=== PATIENT | female | born 1980 | race Caucasian/White ===

== ENCOUNTER 2016-11-24 06:52 | Inpatient (IN) | payer MEDICAID ==
[~2016-11-24 06:52] MED LIST: Oxytocin/Lactated Ringers 10 UNIT/1,000 ML BAG IV SCH
[2016-11-24] MEDS ORDERED: Oxytocin/Lactated Ringers 10 UNIT/1,000 ML BAG IV ONE ×2 (09:11→09:24)
[2016-11-24] MEDS: Lactated Ringers 1,000 ML IV SCH ×2 (11:05→22:32)
[2016-11-24] MEDS ORDERED: Sodium Chloride 0.9% 10 ML Syringe FLUSH PRN (12:39)
[2016-11-24] MEDS ORDERED: Ondansetron 4 MG/2 ML SDV IVPUSH PRN (12:41)
--- NOTE | 2016-11-24 16:42 | PCM.PNLD ---
Labor Progress Note - VS & Meds Vital Signs: Last Vital Signs Temp 36.2 C 11/24/16 07:40 Pulse 81 11/24/16 07:40 Resp 15 11/24/16 07:40 BP 103/70 11/24/16 07:40 Pulse Ox 98 11/24/16 07:40 Active Medications: Current Medications Lactated Ringer's (Ringers, Lactated) 1,000 mls @ 40 mls/hr IV ASDIRECTED JULIOCESAR Last Admin: 11/24/16 11:05 Dose: 40 mls/hr Oxytocin/Lactated Ringer's (Pitocin In Lr 10 Units/1,000 Ml) 10 unit in 1,000 mls @ 12 mls/hr IV TITRATE JULIOCESAR; 2 MUNITS/MIN PRN Reason: Protocol Last Titration: 11/24/16 15:35 Dose: 10 munits/min, 60 mls/hr Nalbuphine HCl (Nubain) 10 mg IVPUSH Q2H PRN PRN Reason: Pain (moderate 4-6) Ondansetron HCl (Zofran) 4 mg IVPUSH Q4H PRN PRN Reason: Nausea/Vomiting Sodium Chloride (Saline Flush) 10 ml FLUSH ASDIRECTED PRN PRN Reason: Keep Vein Open Discontinued Medications Oxytocin/Lactated Ringer's (Pitocin In Lr 10 Units/1,000 Ml) Confirm Administered Dose 10 unit in 1,000 mls @ as directed IV .STK-MED ONE Stop: 11/24/16 09:12 Last Admin: 11/24/16 09:33 Dose: Not Given Oxytocin/Lactated Ringer's (Pitocin In Lr 10 Units/1,000 Ml) Confirm Administered Dose 10 unit in 1,000 mls @ as directed IV .STK-MED ONE Stop: 11/24/16 09:25 Last Admin: 11/24/16 09:33 Dose: Not Given - Uterine Contractions Uterine Monitoring Mode: External [place] Contraction Intensity: Moderate Uterine Resting Tone: Soft - Monitoring Monitor Mode: External Ultrasound Heart Rate (FHR) Baseline: 130 Heart Rate (FHR) Variability: Moderate (6-25 bmp) Accelerations: Present, 10x10 (=/<32 wks) Decelerations: None Strip Review: Category I - Vaginal Exam Dilation (cm): 0.5 Effacement (Percent): 80 Station: 0 Cervical Position: Midposition - Labor Progress (Free Text) Labor Progress: Thought now that scar tissue band from LEEP after last delivery is what is precluding ROM. With aid of speculum able to pass a andino bulb past the cervix. Pitocin at 10. Once andino bulb out will attempt AROM at that time. Patient and her express understanding of the plan.
[2016-11-24] MEDS: Nalbuphine 20 MG/1 ML Amp IVPUSH PRN ×2 (18:16→22:31)
--- NOTE | 2016-11-24 19:51 | PCM.PNLD ---
Labor Progress Note - VS & Meds Vital Signs: Last Vital Signs Temp 36.2 C 11/24/16 07:40 Pulse 81 11/24/16 07:40 Resp 15 11/24/16 07:40 BP 103/70 11/24/16 07:40 Pulse Ox 98 11/24/16 07:40 Active Medications: Current Medications Lactated Ringer's (Ringers, Lactated) 1,000 mls @ 40 mls/hr IV ASDIRECTED JULIOCESAR Last Admin: 11/24/16 11:05 Dose: 40 mls/hr Oxytocin/Lactated Ringer's (Pitocin In Lr 10 Units/1,000 Ml) 10 unit in 1,000 mls @ 12 mls/hr IV TITRATE JULIOCESAR; 2 MUNITS/MIN PRN Reason: Protocol Last Titration: 11/24/16 15:35 Dose: 10 munits/min, 60 mls/hr Nalbuphine HCl (Nubain) 10 mg IVPUSH Q2H PRN PRN Reason: Pain (moderate 4-6) Last Admin: 11/24/16 18:16 Dose: 10 mg Ondansetron HCl (Zofran) 4 mg IVPUSH Q4H PRN PRN Reason: Nausea/Vomiting Sodium Chloride (Saline Flush) 10 ml FLUSH ASDIRECTED PRN PRN Reason: Keep Vein Open Discontinued Medications Oxytocin/Lactated Ringer's (Pitocin In Lr 10 Units/1,000 Ml) Confirm Administered Dose 10 unit in 1,000 mls @ as directed IV .STK-MED ONE Stop: 11/24/16 09:12 Last Admin: 11/24/16 09:33 Dose: Not Given Oxytocin/Lactated Ringer's (Pitocin In Lr 10 Units/1,000 Ml) Confirm Administered Dose 10 unit in 1,000 mls @ as directed IV .STK-MED ONE Stop: 11/24/16 09:25 Last Admin: 11/24/16 09:33 Dose: Not Given - Uterine Contractions Uterine Monitoring Mode: External [place] Contraction Intensity: Moderate to Strong Uterine Resting Tone: Soft - Monitoring Monitor Mode: External Ultrasound Heart Rate (FHR) Baseline: 140 Heart Rate (FHR) Variability: Moderate (6-25 bmp) Accelerations: Present, 10x10 (=/<32 wks) Decelerations: None, Late, Intermittent (<50% x 20 min) Strip Review: Category II - Labor Progress (Free Text) Labor Progress: Patient now feeling much more uncomfortable. Has received 1 dose of nubain. Pitocin at 10, but just decreased due to 3 recurrent late decelerations. Will decrease further if needed. Pressure placed on andino bulb, but still in place. Will assess again in a few hours Shelley Polanco MD
[2016-11-25] MEDS: Lactated Ringers 1,000 ML IV SCH (00:30)
--- NOTE | 2016-11-25 00:45 | PCM.PNLD ---
Labor Progress Note - VS & Meds Vital Signs: Last Vital Signs Temp 36.2 C 11/24/16 07:40 Pulse 81 11/24/16 07:40 Resp 15 11/24/16 07:40 BP 103/70 11/24/16 07:40 Pulse Ox 98 11/24/16 07:40 Active Medications: Current Medications Lactated Ringer's (Ringers, Lactated) 1,000 mls @ 40 mls/hr IV ASDIRECTED JULIOCESAR Last Admin: 11/24/16 22:32 Dose: 40 mls/hr Oxytocin/Lactated Ringer's (Pitocin In Lr 10 Units/1,000 Ml) 10 unit in 1,000 mls @ 12 mls/hr IV TITRATE JULIOCESAR; 2 MUNITS/MIN PRN Reason: Protocol Last Titration: 11/24/16 15:35 Dose: 10 munits/min, 60 mls/hr Nalbuphine HCl (Nubain) 10 mg IVPUSH Q2H PRN PRN Reason: Pain (moderate 4-6) Last Admin: 11/24/16 22:31 Dose: 10 mg Ondansetron HCl (Zofran) 4 mg IVPUSH Q4H PRN PRN Reason: Nausea/Vomiting Sodium Chloride (Saline Flush) 10 ml FLUSH ASDIRECTED PRN PRN Reason: Keep Vein Open Discontinued Medications Oxytocin/Lactated Ringer's (Pitocin In Lr 10 Units/1,000 Ml) Confirm Administered Dose 10 unit in 1,000 mls @ as directed IV .STK-MED ONE Stop: 11/24/16 09:12 Last Admin: 11/24/16 09:33 Dose: Not Given Oxytocin/Lactated Ringer's (Pitocin In Lr 10 Units/1,000 Ml) Confirm Administered Dose 10 unit in 1,000 mls @ as directed IV .STK-MED ONE Stop: 11/24/16 09:25 Last Admin: 11/24/16 09:33 Dose: Not Given - Uterine Contractions Uterine Monitoring Mode: External [place] Contraction Intensity: Strong Uterine Resting Tone: Soft - Monitoring Monitor Mode: External Ultrasound Heart Rate (FHR) Baseline: 135 Heart Rate (FHR) Variability: Moderate (6-25 bmp) Accelerations: Present, 10x10 (=/<32 wks) Decelerations: None Strip Review: Category I - Vaginal Exam Dilation (cm): 1 Effacement (Percent): 100 Station: 0 Cervical Position: Midposition - Labor Progress (Free Text) Labor Progress: Patient feeling very uncomfortable. Checked with andino bulb still in place and thought to be maybe just very thin scar tissue/cervix covering. Deflated and able to AROM through 1 cm opening. Patient has been zayda on her own since 1999 without pitocin. Continue present management Shelley Polanco MD
--- NOTE | 2016-11-25 00:58 | PCM.SN ---
- Free Text/Narrative Note: SVE done now and able to stretch cervical opening and break down a band of scar tissue. Patient now 4 cm dilated. Continue expectant management Shelley Polanco MD
[2016-11-25] MEDS: Nalbuphine 20 MG/1 ML Amp IVPUSH PRN (01:16)
--- NOTE | 2016-11-25 04:38 | PCM.DEL ---
L & D Note - General Info Date of Service: 11/25/16 - Delivery Note Labor: induced by oxytocin Cervical Ripening Method: Balloon Device Delivery Outcome: Livebirth Infant Delivery Method: Spontaneous Vaginal Delivery Delivery Mode: Spontaneous Presentation: Right Occiput Anterior (DARIN) Nuchal cord: none Anesthesia Type: None Amniotic Fluid Description: Clear Episiotomy Type: None Laceration: none Placenta: intact, spontaneous Cord: 3 vessels Estimated blood loss: 300 Resuscitation needed: Yes : bulb syringe, stimulated, warmed, blanket used, warmer used Score 1 min: 8 Score 5 min: 9 Delivery Comments (Free Text/Narrative):: Patient found to be complete and began pushing. With maternal pushing effort head delivered from an DARIN presentation. No nuchal cord present. Shoulders and body quickly followed. Cord clamped and cut. Cord blood obtained. Placenta allowed time to separate and expelled. Inspection of the perineum showed no lacerations. - Patient Data Vitals - most recent: Last Vital Signs Temp 36.2 C 11/24/16 07:40 Pulse 81 11/24/16 07:40 Resp 15 11/24/16 07:40 BP 103/70 11/24/16 07:40 Pulse Ox 98 11/24/16 07:40 Weight - most recent: 63.276 kg I&O - last 24 hours: Intake & Output 11/24/16 11/24/16 11/25/16 14:59 22:59 06:59 Intake Total 240 Balance 240 Med Orders - Current: Current Medications Lactated Ringer's (Ringers, Lactated) 1,000 mls @ 40 mls/hr IV ASDIRECTED JULIOCESAR Last Admin: 11/24/16 22:32 Dose: 40 mls/hr Oxytocin/Lactated Ringer's (Pitocin In Lr 10 Units/1,000 Ml) 10 unit in 1,000 mls @ 12 mls/hr IV TITRATE JULIOCESAR; 2 MUNITS/MIN PRN Reason: Protocol Last Titration: 11/24/16 15:35 Dose: 10 munits/min, 60 mls/hr Nalbuphine HCl (Nubain) 10 mg IVPUSH Q2H PRN PRN Reason: Pain (moderate 4-6) Last Admin: 11/25/16 01:16 Dose: 10 mg Ondansetron HCl (Zofran) 4 mg IVPUSH Q4H PRN PRN Reason: Nausea/Vomiting Sodium Chloride (Saline Flush) 10 ml FLUSH ASDIRECTED PRN PRN Reason: Keep Vein Open Discontinued Medications Oxytocin/Lactated Ringer's (Pitocin In Lr 10 Units/1,000 Ml) Confirm Administered Dose 10 unit in 1,000 mls @ as directed IV .STK-MED ONE Stop: 11/24/16 09:12 Last Admin: 11/24/16 09:33 Dose: Not Given Oxytocin/Lactated Ringer's (Pitocin In Lr 10 Units/1,000 Ml) Confirm Administered Dose 10 unit in 1,000 mls @ as directed IV .STK-MED ONE Stop: 11/24/16 09:25 Last Admin: 11/24/16 09:33 Dose: Not Given - Problem List & Annotations (1) Vaginal delivery SNOMED Code(s): 803566296 Code(s): O80 - ENCOUNTER FOR FULL-TERM UNCOMPLICATED DELIVERY Status: Acute Current Visit: Yes (2) 39 weeks gestation of SNOMED Code(s): 54906870 Code(s): Z3A.39 - 39 WEEKS GESTATION OF Status: Acute Current Visit: No (3) Elective induction of labor planned SNOMED Code(s): 530662535 Code(s): TFQ2881 - Status: Acute Current Visit: No - Problem List Review Problem List Initiated/Reviewed/Updated: Yes - My Orders Last 24 Hours: My Active Orders 11/24/16 06:13 Patient Status [ADT] Routine Nalbuphine [Nubain] 10 mg IVPUSH Q2H PRN Oxytocin/Lactated Ringers [Pitocin in LR 10 Units/1,000 ML] 10 unit in 1,000 ml IV TITRATE 11/24/16 06:15 Lactated Ringers [Ringers, Lactated] 1,000 ml IV ASDIRECTED 11/24/16 12:32 Code Status [Resuscitation Status] Routine 11/24/16 12:39 Sodium Chloride 0.9% [Saline Flush] 10 ml FLUSH ASDIRECTED PRN Peripheral IV Insertion Adult [OM.PC] Routine 11/24/16 12:40 Peripheral IV Care [RC] . DIRECTED 11/24/16 12:41 Ondansetron [Zofran] 4 mg IVPUSH Q4H PRN 11/24/16 13:05 Communication Order [RC] ASDIRECTED Communication Order [RC] ASDIRECTED Notify Provider [RC] ASDIRECTED 11/24/16 13:08 Activity as Tolerated [RC] PFP Communication Order [RC] ASDIRECTED Notify Provider [RC] PRN Vital Signs [RC] PER UNIT ROUTINE Electronic Heart Tones Ext w TOCO [WOMSER] Routine Electronic Heart Tones Internal [WOMSER] Per Unit Routine Peripheral IV Insertion Adult [OM.PC] Routine 11/24/16 Breakfast Regular Diet [DIET] - Assessment Assessment:: 36 PPD#0 from at 39 1/7 wks - Plan Plan:: * Routine cares * Encourage breast feeding * Discharge home in 1 day
[2016-11-25] MEDS ORDERED: Acetaminophen 325 MG Tab PO PRN (06:16)
[2016-11-25] MEDS ORDERED: Benzocaine/Menthol 20%-0.5% Spray 56 GM Canister TOP PRN (06:16)
[2016-11-25] MEDS ORDERED: Ibuprofen 600 MG Tab PO PRN (06:16)
[2016-11-25] MEDS ORDERED: Lanolin 100% Cream 7 GM Tube TOP PRN (06:16)
[2016-11-25] MEDS ORDERED: Witch Hazel Medicated Pads 100/Jar TOP PRN (06:16)
[2016-11-26 05:41] VITALS: BP 109/71
--- NOTE | 2016-11-26 06:57 | PCM.PNPP ---
- General Info Date of Service: 11/26/16 Functional Status: Reports: pain controlled, tolerating diet, ambulating, urinating - Review of Systems General: Reports: No Symptoms Pulmonary: Reports: no symptoms Cardiovascular: Reports: No Symptoms Gastrointestinal: Reports: No symptoms Genitourinary: Reports: no symptoms Musculoskeletal: Reports: no symptoms - Patient Data Vital Signs - most recent: Last Vital Signs Temp 37.1 C 11/26/16 03:48 Pulse 65 11/26/16 03:48 Resp 12 11/26/16 03:48 BP 109/71 11/26/16 03:48 Pulse Ox 97 11/26/16 03:48 Weight - most recent: 63.276 kg I&O - last 24 hours: Intake & Output 11/25/16 11/25/16 11/26/16 14:59 22:59 06:59 Intake Total 240 Balance 240 Med Orders - Current: Current Medications Acetaminophen (Tylenol) 650 mg PO Q4H PRN PRN Reason: mild pain or fever Benzocaine/Menthol (Dermoplast Pain Relief [place]) 0 gm TOP ASDIRECTED PRN PRN Reason: Perineal Comfort Measure Emollient Ointment (Lansinoh Hpa) 0 gm TOP ASDIRECTED PRN PRN Reason: Sore Nipples Last Admin: 11/26/16 00:26 Dose: 1 tube Ibuprofen (Motrin) 600 mg PO Q6H PRN PRN Reason: Mild pain or fever Witch Estela (Tucks) 1 pad TOP ASDIRECTED PRN PRN Reason: Hemorrhoid pain Discontinued Medications Oxytocin/Lactated Ringer's (Pitocin In Lr 10 Units/1,000 Ml) Confirm Administered Dose 10 unit in 1,000 mls @ as directed IV .STK-MED ONE Stop: 11/24/16 09:12 Last Admin: 11/24/16 09:33 Dose: Not Given Oxytocin/Lactated Ringer's (Pitocin In Lr 10 Units/1,000 Ml) Confirm Administered Dose 10 unit in 1,000 mls @ as directed IV .STK-MED ONE Stop: 11/24/16 09:25 Last Admin: 11/24/16 09:33 Dose: Not Given Lactated Ringer's (Ringers, Lactated) 1,000 mls @ 40 mls/hr IV ASDIRECTED [facility] Last Admin: 11/25/16 00:30 Dose: 40 mls/hr Oxytocin/Lactated Ringer's (Pitocin In Lr 10 Units/1,000 Ml) 10 unit in 1,000 mls @ 12 mls/hr IV TITRATE JULIOCESAR; 2 MUNITS/MIN PRN Reason: Protocol Last Titration: 11/24/16 20:04 Dose: 0 munits/min, 0 mls/hr Nalbuphine HCl (Nubain) 10 mg IVPUSH Q2H PRN PRN Reason: Pain (moderate 4-6) Last Admin: 11/25/16 01:16 Dose: 10 mg Ondansetron HCl (Zofran) 4 mg IVPUSH Q4H PRN PRN Reason: Nausea/Vomiting Sodium Chloride (Saline Flush) 10 ml FLUSH ASDIRECTED PRN PRN Reason: Keep Vein Open - Infant Interaction Disposition, : [place] in Room with Family Interaction: Holding Infant Infant Feeding: Breastfed Infant; Nursed Well Support Person: Significant Other - Recovery Exam Fundal Tone: Firm Fundal Level: 3 Fingerbreadths Below Umbilicus Fundal Placement: Midline Lochia Amount: Scant Lochia Color: Rubra/Red Perineum Description: Intact, Minimal Bruising/Swelling Episiotomy/Laceration: None Bladder Status: Voiding - Exam General: alert, oriented, cooperative Abdomen: soft, no tenderness Extremities: no edema Skin: warm, dry, intact - Problem List & Annotations (1) Vaginal delivery SNOMED Code(s): 809939935 Code(s): O80 - ENCOUNTER FOR FULL-TERM UNCOMPLICATED DELIVERY Status: Acute Current Visit: Yes (2) 39 weeks gestation of SNOMED Code(s): 61565462 Code(s): Z3A.39 - 39 WEEKS GESTATION OF Status: Acute Current Visit: No (3) Elective induction of labor planned SNOMED Code(s): 251648166 Code(s): WKT7803 - Status: Acute Current Visit: No - Problem List Review Problem List Initiated/Reviewed/Updated: Yes - My Orders Last 24 Hours: My Active Orders 11/25/16 06:16 Activity as Tolerated [RC] Vital Signs [RC] 04,12,20 Acetaminophen [Tylenol] 650 mg PO Q4H PRN Benzocaine/Menthol [Dermoplast Pain Relief [place]] See Dose Instructions TOP ASDIRECTED PRN Ibuprofen [Motrin] 600 mg PO Q6H PRN Lanolin [Lansinoh HPA] See Dose Instructions TOP ASDIRECTED PRN Witch Estela [Tucks] 1 pad TOP ASDIRECTED PRN Assess Lochia [WOMSER] Per Unit Routine Assess Uterine Involution [WOMSER] Per Unit Routine Breast Pump [WOMSER] Per Unit Routine Heat Therapy [OM.PC] PRN Ice Therapy [OM.PC] Per Unit Routine Perineal Care [OM.PC] Per Unit Routine Peripheral IV Discontinue [OM.PC] Routine Sitz Bath [OM.PC] Per Unit Routine 11/25/16 Breakfast Regular Diet [DIET] 11/26/16 06:16 Heat Therapy [OM.PC] PRN 11/26/16 06:56 Ready for Discharge [RC] PER UNIT ROUTINE - Assessment Assessment:: 36 PPD#1 from at 39 1/7 wks - Plan Plan:: * Routine cares * Encourage breast feeding * Discharge home today
--- NOTE | 2016-11-26 07:00 | PCM.DCSUM1 ---
Discharge Summary - Discharge Data Discharge Date: 11/26/16 Discharge Disposition: Home, Self-Care 01 Condition: Good - Discharge Diagnosis/Problem(s) (1) Vaginal delivery SNOMED Code(s): 416042153 ICD Code: O80 - ENCOUNTER FOR FULL-TERM UNCOMPLICATED DELIVERY Status: Acute Current Visit: Yes (2) 39 weeks gestation of SNOMED Code(s): 32563438 ICD Code: Z3A.39 - 39 WEEKS GESTATION OF Status: Acute Current Visit: No (3) Elective induction of labor planned SNOMED Code(s): 901915482 ICD Code: LOQ3353 - Status: Acute Current Visit: No - Patient Summary/Data Complications: None Consults: None Recommended Follow-up Testing/Procedures: Follow up in 5-6 weeks for check Hospital Course: Patient is a 36 y/o admitted at 39 0/7 wks for IOL. This was done with pitocin, andino bulb, and AROM. This was a longer induction due to scar tissue from previous LEEP. She eventually underwent an uncomplicated . See delivery note. she did well and was discharged home on PPD#1. - Patient Instructions Diet: Regular Diet as Tolerated Activity: As Tolerated Activity, Other: Pelvic Rest for 6 weeks Driving: May Drive Today Showering/Bathing: May Shower Showering/Bathing, Other: May Bathe Notify Provider of: Fever, Increased Pain, Swelling and Redness, Drainage, Nausea and/or Vomiting - Discharge Plan Home Medications: Home Meds Vits #93/Iron Fum/FA [ Formula Tablet] 1 each PO DAILY [History] Ranitidine [Zantac] 150 mg PO BID 12/29/13 [History] Ibuprofen [IJD: Ibuprofen] 600 mg PO Q6H PRN #0 tablet 11/25/16 [Rx] Referrals: Shelley Polanco MD [Primary Care Provider] - (5-6 weeks for check) - Patient Data Vitals - Most Recent: Last Vital Signs Temp 37.1 C 11/26/16 03:48 Pulse 65 11/26/16 03:48 Resp 12 11/26/16 03:48 BP 109/71 11/26/16 03:48 Pulse Ox 97 11/26/16 03:48 Weight - Most Recent: 63.276 kg I&O - Last 24 hours: Intake & Output 11/25/16 11/25/16 11/26/16 14:59 22:59 06:59 Intake Total 240 Balance 240 Med Orders - Current: Current Medications Acetaminophen (Tylenol) 650 mg PO Q4H PRN PRN Reason: mild pain or fever Benzocaine/Menthol (Dermoplast Pain Relief [place]) 0 gm TOP ASDIRECTED PRN PRN Reason: Perineal Comfort Measure Emollient Ointment (Lansinoh Hpa) 0 gm TOP ASDIRECTED PRN PRN Reason: Sore Nipples Last Admin: 11/26/16 00:26 Dose: 1 tube Ibuprofen (Motrin) 600 mg PO Q6H PRN PRN Reason: Mild pain or fever Witch [place] (Tucks) 1 pad TOP ASDIRECTED PRN PRN Reason: Hemorrhoid pain Discontinued Medications Oxytocin/Lactated Ringer's (Pitocin In Lr 10 Units/1,000 Ml) Confirm Administered Dose 10 unit in 1,000 mls @ as directed IV .STK-MED ONE Stop: 11/24/16 09:12 Last Admin: 11/24/16 09:33 Dose: Not Given Oxytocin/Lactated Ringer's (Pitocin In Lr 10 Units/1,000 Ml) Confirm Administered Dose 10 unit in 1,000 mls @ as directed IV .STK-MED ONE Stop: 11/24/16 09:25 Last Admin: 11/24/16 09:33 Dose: Not Given Lactated Ringer's (Ringers, Lactated) 1,000 mls @ 40 mls/hr IV ASDIRECTED JULIOCESAR Last Admin: 11/25/16 00:30 Dose: 40 mls/hr Oxytocin/Lactated Ringer's (Pitocin In Lr 10 Units/1,000 Ml) 10 unit in 1,000 mls @ 12 mls/hr IV TITRATE JULIOCESAR; 2 MUNITS/MIN PRN Reason: Protocol Last Titration: 11/24/16 20:04 Dose: 0 munits/min, 0 mls/hr Nalbuphine HCl (Nubain) 10 mg IVPUSH Q2H PRN PRN Reason: Pain (moderate 4-6) Last Admin: 11/25/16 01:16 Dose: 10 mg Ondansetron HCl (Zofran) 4 mg IVPUSH Q4H PRN PRN Reason: Nausea/Vomiting Sodium Chloride (Saline Flush) 10 ml FLUSH ASDIRECTED PRN PRN Reason: Keep Vein Open *Q Meaningful Use (DIS) - VTE *Q VTE Criteria *Q: - Stroke *Q Stroke Criteria *Q: - AMI *Q AMI Criteria *Q:
== END 2016-11-26 10:19 | disposition home or self-care (01) | DRG 775 ==
LOC: JD.OB 06:52 → JD.US 06:52 → JD.OB 06:53 → JD.US 06:53 → OBSVTOIN 11-25 04:20 → JD.OB 11-25 04:20
PROVIDERS: ADMIT Obstetrics & Gynecology; ATTEND Obstetrics & Gynecology
PROC: 10E0XZZ Delivery of Products of Conception, External Approach (ICD-10-PCS; principal; 2016-11-25)
PROC: 10907ZC Drainage of Amniotic Fluid, Therapeutic from Products of Conception, Via Natural or Artificial Opening (ICD-10-PCS; 2016-11-25)
DX: O80 Encounter for full-term uncomplicated delivery (principal); Z3A.39 39 weeks gestation of pregnancy; Z37.0 Single live birth
CPT/HCPCS: A9270-GY; J2300; J2590; J7120

== ENCOUNTER 2019-06-17 09:02 | Emergency (ER) | payer MEDICAID ==
[2019-06-17 09:25] VITALS: BP 110/82; PULSE 96
--- NOTE | 2019-06-17 09:36 | EDM.PDOC ---
ED HPI GENERAL MEDICAL PROBLEM - General Chief Complaint: Chest Pain Stated Complaint: CHEST PAIN OFF AND ON Time Seen by Provider: 06/17/19 09:36 - History of Present Illness INITIAL COMMENTS - FREE TEXT/NARRATIVE: 38-year-old female presents emergency room with intermittent chest pain. She has pain usually when she tries to go to bed. He goes into her chest it is different from when she had reflux when she was . He gets it 3 or 4 times a month she had it last night and it was worse than normal. It is described as a midepigastric discomfort not necessarily burning. She has not had a cough. No fevers chills. No nausea or vomiting. Deep breathing tends to make it better. And she might have an anxiety component when this happens. Right Chest Pain Score (Numeric/FACES): 3 - Related Data Allergies Allergy/AdvReac Type Severity Reaction Status Date / Time No Known Allergies Allergy Verified 06/17/19 09:19 Home Meds: Home Meds Omeprazole 20 mg PO Q24H #30 capsule. 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 - Past Surgical History HEENT Surgical History: Reports: Tonsillectomy Other HEENT Surgeries/Procedures: 1993 Female Surgical History: Reports: Cervical Conization, LEEP, Tubal Ligation Other Female Surgeries/Procedures: 2013 Social & Family History - Family History Family Medical History: Noncontributory - Tobacco Use Smoking Status *Q: Never Smoker - Caffeine Use Caffeine Use: Reports: Soda Caffeine Use Comment: once a day - Recreational Drug Use Recreational Drug Use: No ED ROS GENERAL - Review of Systems Review Of Systems: See Below Constitutional: Reports: No Symptoms HEENT: Reports: No Symptoms Respiratory: Denies: Pleuritic Chest Pain, Cough, Sputum Cardiovascular: Reports: Chest Pain (Term it since). Denies: Edema, Palpitations Endocrine: Reports: No Symptoms GI/Abdominal: Denies: Constipation, Diarrhea, Nausea, Vomiting : Reports: No Symptoms Musculoskeletal: Reports: No Symptoms Skin: Reports: No Symptoms Neurological: Reports: No Symptoms Psychiatric: Reports: Other (Hospital anxiety) Hematologic/Lymphatic: Reports: No Symptoms Immunologic: Reports: No Symptoms ED EXAM, GENERAL - Physical Exam Exam: See Below Exam Limited By: Uncooperative General Appearance: No Apparent Distress Head: Atraumatic, Normocephalic Neck: Normal Inspection, Supple, Non-Tender, Full Range of Motion. No: Lymphadenopathy (L), Lymphadenopathy (R) Respiratory/Chest: No Respiratory Distress, Lungs Clear, Normal Breath Sounds, Other Cardiovascular: Regular Rate, Rhythm, No Edema (Outpatient of the chest does not ), No Murmur GI/Abdominal: Normal Bowel Sounds, Soft, Non-Tender Back Exam: Normal Inspection. No: CVA Tenderness (L), CVA Tenderness (R) Extremities: Normal Inspection, Non-Tender, No Pedal Edema EKG INTERPRETATION EKG Date: 06/17/19 [place]: Normal P-Wave: Present QRS: Normal ST-T: Normal QT: Normal Comparison: NA - No Prior EKG EKG Interpretation Comments: Normal EKG Course - Vital Signs Last Recorded V/S: Last Vital Signs Temp 36.9 C 06/17/19 09:20 Pulse 96 06/17/19 09:20 Resp 16 06/17/19 09:20 BP 110/82 06/17/19 09:20 Pulse Ox 99 06/17/19 09:20 - Orders/Labs/Meds Orders: Active Orders 24 hr Category Date Time Status EKG Documentation Completion [RC] ASDIRECTED Care 06/17/19 10:01 Active Chest 2V [CR] Stat Exams 06/17/19 10:04 Taken EKG 12 Lead [EK] Stat Ther 06/17/19 10:01 Ordered Labs: Laboratory Tests 06/17/19 06/17/19 06/17/19 Range/Units 10:25 10:25 10:25 WBC 6.81 (3.98-10.04) K/mm3 RBC 4.44 (3.98-5.22) M/mm3 Hgb 13.3 (11.2-15.7) gm/dl Hct 39.4 (34.1-44.9) % MCV 88.7 (79.4-94.8) fl MCH 30.0 (25.6-32.2) pg MCHC 33.8 (32.2-35.5) g/dl RDW Std Deviation 40.8 (36.4-46.3) fL Plt Count 215 (182-369) K/mm3 MPV 10.0 (9.4-12.3) fl Neut % (Auto) 71.5 H (34.0-71.1) % Lymph % (Auto) 18.6 L (19.3-51.7) % [place] % (Auto) 7.0 (4.7-12.5) % Eos % (Auto) 2.6 (0.7-5.8) Baso % (Auto) 0.3 (0.1-1.2) % Neut # (Auto) 4.86 (1.56-6.13) K/mm3 Lymph # (Auto) 1.27 (1.18-3.74) K/mm3 [place] # (Auto) 0.48 H (0.24-0.36) K/mm3 Eos # (Auto) 0.18 (0.04-0.36) K/mm3 Baso # (Auto) 0.02 (0.01-0.08) K/mm3 Sodium 142 (136-145) mEq/L Potassium 4.0 (3.5-5.1) mEq/L Chloride 107 (98-107) mEq/L Carbon Dioxide 25 (21-32) mEq/L Anion Gap 14.0 (5-15) BUN 14 (7-18) mg/dL Creatinine 0.7 (0.55-1.02) mg/dL Est Cr Clr Drug Dosing 94.10 mL/min Estimated GFR (MDRD) > 60 (>60) mL/min BUN/Creatinine Ratio 20.0 H (14-18) Glucose 95 (74-106) mg/dL Calcium 8.6 (8.5-10.1) mg/dL Total Bilirubin 0.8 (0.2-1.0) mg/dL AST 10 L (15-37) U/L ALT 17 (14-59) U/L Alkaline Phosphatase 49 (46-116) U/L Troponin I 0.017 (0.00-0.056) ng/mL Total Protein 7.5 (6.4-8.2) g/dl Albumin 4.0 (3.4-5.0) g/dl Globulin 3.5 gm/dL Albumin/Globulin Ratio 1.1 (1-2) Lipase 95 (73-393) U/L Meds: Medications Discontinued Medications Generic Name Dose Route Start Last Admin Trade Name Cookie PRN Reason Stop Dose Admin Al Hydroxide/Mg Hydroxide 30 0 ml 06/17/19 10:05 06/17/19 10:28 ml/ Lidocaine HCl 15 ml PO 06/17/19 10:06 45 ml ONETIME ONE Administration - Re-Assessments/Exams Free Text/Narrative Re-Assessment/Exam: 06/17/19 12:43 X-rays normal laboratory evaluation is nonsuggestive. Patient to get some relief with GI cocktail this was not complete did help anticipate discharge with Carafate for 6 days and will start PPI therapy and have her follow-up in the clinic at the end of this week. Departure - Departure Time of Disposition: 12:43 Disposition: Home, Self-Care 01 Clinical Impression: Dyspepsia - Discharge Information Prescriptions: Omeprazole 20 mg PO Q24H #30 capsule. Sucralfate [Carafate] 1 gm PO QIDACANDBED #24 tablet Referrals: Eri Mccormick PA-C [Primary Care Provider] - Forms: ED Department Discharge Additional Instructions: Return to emergency room if any questions or problems. Follow-up with your regular provider at the end of this week for recheck. Take medications as directed you will take the Carafate 4 times a day just before meals and at bedtime we discussed. You have also been started on omeprazole you'll take one 1 hour before your morning meal daily. Sepsis Event Note - Evaluation Sepsis Screening Result: No Definite Risk - Focused Exam Vital Signs: Vital Signs Temp Pulse Resp BP Pulse Ox 06/17/19 09:20 36.9 C 96 16 110/82 99 Date Exam was Performed: 06/17/19 Time Exam was Performed: 12:43 - My Orders Last 24 Hours: My Active Orders 06/17/19 10:01 EKG Documentation Completion [RC] ASDIRECTED EKG 12 Lead [EK] Stat 06/17/19 10:04 Chest 2V [CR] Stat - Assessment/Plan Last 24 Hours: My Active Orders 06/17/19 10:01 EKG Documentation Completion [RC] ASDIRECTED EKG 12 Lead [EK] Stat 06/17/19 10:04 Chest 2V [CR] Stat
[2019-06-17] MEDS ORDERED: Alum Hydrox/Mag Hydrox/Simeth 30 ML, Lidocaine 2% 15 ML PO ONE ×2 (10:05)
--- NOTE | 2019-06-18 09:21 | CR ---
Chest: Two views of the chest were obtained. Comparison: No prior chest x-ray. Heart size and mediastinum are normal. Lungs are clear. Bony structures show minimal degenerative change within the mid thoracic spine. Impression: 1. Nothing acute is seen.
== END 2019-06-17 13:10 | disposition home or self-care (01) ==
LOC: JD.ED 09:02
DX: R10.13 Epigastric pain (principal)
CPT/HCPCS: 36415; 71046; 80053; 83690; 84484; 85025; 93005; 99285; A9270; 93010; 99283

== ENCOUNTER 2019-09-30 19:00 | Emergency (ER) | payer MEDICAID ==
[2019-09-30 19:14] VITALS: BP 119/70; PULSE 94
[2019-09-30] MEDS ORDERED: Sodium Chloride 0.9% 10 ML Syringe FLUSH PRN (19:20)
[2019-09-30] MEDS ORDERED: LORazepam 0.5 MG Tab PO ONE (19:47)
--- NOTE | 2019-09-30 19:56 | EDM.PDOC ---
ED HPI GENERAL MEDICAL PROBLEM - General Chief Complaint: Chest Pain Stated Complaint: SHORTNESS OF BREATH,CHEST PAIN Time Seen by Provider: 09/30/19 19:14 Source of Information: Reports: Patient, RN Notes Reviewed History Limitations: Reports: No Limitations - History of Present Illness INITIAL COMMENTS - FREE TEXT/NARRATIVE: The patient is a 38-year-old female who presents to the ED for the evaluation of some ongoing chest pain or shortness of breath. The patient states that her chest pain comes and goes, and over the last 4 days it does radiate into her back. Patient is complaining of some generalized numbness/tingling on the left side of her body at times. Patient states when she feels the chest pain, she then becomes anxious. She states that she does feel short of breath with activity, and thinks she has a racing heartbeat at times as well. She has not taken her heart rate at home however. Patient denies any recent illness, fever/ chills, cough. Patient states that the symptoms do seem to worsen at night, roughly 4 5 PM, and she notes that she does get a mildly sore throat. She states that the pain is constantly there all the time is more of a burning/ gnawing pain, in her right mid chest, and then does progress to a sharp stabbing pain at times. Patient states that when she feels short of breath, she tries some deep breathing exercises and this does seem to help a little bit. She has seen a provider at the [facility], and was trialed on omeprazole, patient states it helped a little bit but did not think it was doing much so she stopped taking it. Patient has been evaluated in the ER here , few months ago, and was told her symptoms may be due to heartburn. The patient adamantly does not think that it is heartburn. 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 - Infectious Disease History Infectious Disease History: Reports: Chicken Pox - Past Surgical History HEENT Surgical History: Reports: Tonsillectomy Other HEENT Surgeries/Procedures: 1993 Female Surgical History: Reports: Cervical Conization, LEEP, Tubal Ligation Other Female Surgeries/Procedures: 2013 Social & Family History - Family History Family Medical History: Noncontributory - Tobacco Use Smoking Status *Q: Never Smoker - Caffeine Use Caffeine Use: Reports: Soda Caffeine Use Comment: once a day - Recreational Drug Use Recreational Drug Use: No ED ROS GENERAL - Review of Systems Review Of Systems: See Below Constitutional: Denies: Fever, Chills Respiratory: Reports: Shortness of Breath. Denies: Wheezing, Cough Cardiovascular: Reports: Chest Pain. Denies: Blood Pressure Problem, Lightheadedness GI/Abdominal: Denies: Abdominal Pain, Constipation, Diarrhea, Nausea, Vomiting Neurological: Reports: Tingling (left side of her body at times.) Psychiatric: Reports: Anxiety (does not take any meds for anxiety) ED EXAM, GENERAL - Physical Exam Exam: See Below Exam Limited By: No Limitations General Appearance: Alert, WD/WN, No Apparent Distress, Anxious Eye Exam: Bilateral Eye: EOMI, Normal Inspection, PERRL Ears: Normal External Exam Nose: Normal Inspection Throat/Mouth: Normal Inspection, Normal Lips, Normal Teeth, Normal Gums, Normal Oropharynx, Normal Voice, No Airway Compromise Head: Atraumatic, Normocephalic Neck: Normal Inspection Respiratory/Chest: No Respiratory Distress, Lungs Clear, Normal Breath Sounds, No Accessory Muscle Use, Chest Non-Tender Cardiovascular: Normal Peripheral Pulses, Regular Rate, Rhythm, No Murmur Peripheral Pulses: 3+: Radial (L), Radial (R) GI/Abdominal: Normal Bowel Sounds, Soft, Non-Tender, No Distention, No Mass Extremities: Normal Inspection, Normal Capillary Refill Neurological: Alert, Oriented, Normal Cognition, No Motor/Sensory Deficits Psychiatric: Anxious Skin Exam: Warm, Dry, Intact, Normal Color, No Rash EKG INTERPRETATION EKG Date: 09/30/19 Time: 19:25 Rhythm: NSR Rate (Beats/Min): 92 [place]: Normal P-Wave: Present QRS: Normal ST-T: Normal QT: Normal Comparison: No Change (compared to EKG from 06/2019) EKG Interpretation Comments: No acute ischemic change. Reviewed by myself and Dr. Diamond. Course - Vital Signs Last Recorded V/S: Last Vital Signs Temp 98.0 F 09/30/19 19:08 Pulse 94 09/30/19 19:08 Resp 18 09/30/19 19:08 BP 119/70 09/30/19 19:08 Pulse Ox 100 09/30/19 19:08 - Orders/Labs/Meds Orders: Active Orders 24 hr Category Date Time Status EKG Documentation Completion [RC] STAT Care 09/30/19 19:21 Active Peripheral IV Care [RC] . DIRECTED Care 09/30/19 19:25 Active Sodium Chloride 0.9% [Saline Flush] Med 09/30/19 19:20 Active 10 ml FLUSH ASDIRECTED PRN Peripheral IV Insertion Adult [OM.PC] Stat Oth 09/30/19 19:20 Ordered Medication Orders Sodium Chloride (Saline Flush) 10 ml FLUSH ASDIRECTED PRN PRN Reason: Keep Vein Open Labs: Laboratory Tests 09/30/19 09/30/19 09/30/19 Range/Units 19:56 19:56 19:56 WBC 8.59 (3.98-10.04) K/mm3 RBC 4.18 (3.98-5.22) M/mm3 Hgb 12.0 (11.2-15.7) gm/dl Hct 36.6 (34.1-44.9) % MCV 87.6 (79.4-94.8) fl MCH 28.7 (25.6-32.2) pg MCHC 32.8 (32.2-35.5) g/dl RDW Std Deviation 39.9 (36.4-46.3) fL Plt Count 260 (182-369) K/mm3 MPV 9.6 (9.4-12.3) fl Neutrophils % (Manual) 86 H (40-60) % Band Neutrophils % 0 (0-10) % Lymphocytes % (Manual) 8 L (20-40) % Atypical Lymphs % 0 % Monocytes % (Manual) 5 (2-10) % Eosinophils % (Manual) 1 (0.7-5.8) % Basophils % (Manual) 0 L (0.1-1.2) Platelet Estimate Adequate RBC Morph Comment Normal PT 11.4 (9.7-12.0) SECONDS INR 1.05 APTT 29 (22-31) SECONDS Sodium 140 (136-145) mEq/L Potassium 3.6 (3.5-5.1) mEq/L Chloride 103 (98-107) mEq/L Carbon Dioxide 25 (21-32) mEq/L Anion Gap 15.6 H (5-15) BUN 18 (7-18) mg/dL Creatinine 0.8 (0.55-1.02) mg/dL Est Cr Clr Drug Dosing 82.33 mL/min Estimated GFR (MDRD) > 60 (>60) mL/min BUN/Creatinine Ratio 22.5 H (14-18) Glucose 91 (74-106) mg/dL Calcium 8.5 (8.5-10.1) mg/dL Magnesium 1.7 L (1.8-2.4) mg/dl Total Bilirubin 0.4 (0.2-1.0) mg/dL AST 10 L (15-37) U/L ALT 16 (14-59) U/L Alkaline Phosphatase 56 (46-116) U/L Troponin I < 0.017 (0.00-0.056) ng/mL Total Protein 7.5 (6.4-8.2) g/dl Albumin 3.7 (3.4-5.0) g/dl Globulin 3.8 gm/dL Albumin/Globulin Ratio 1.0 (1-2) Meds: Medications Generic Name Dose Route Start Last Admin Trade Name Freq PRN Reason Stop Dose Admin Sodium Chloride 10 ml 09/30/19 19:20 Saline Flush FLUSH ASDIRECTED PRN Keep Vein Open Discontinued Medications Generic Name Dose Route Start Last Admin Trade Name Freq PRN Reason Stop Dose Admin Lorazepam 1 mg 09/30/19 19:47 09/30/19 20:03 Ativan PO 09/30/19 19:48 1 mg ONETIME ONE Administration - Re-Assessments/Exams Free Text/Narrative Re-Assessment/Exam: 09/30/19 19:57 Patient presents to the ED for the evaluation of her ongoing chest pain and other complaints. Did order EKG, and some lab work with a chest x-ray for further evaluation. EKG demonstrates no acute abnormalities or ischemic change. Reviewed with Dr. Diamond. Departure - Departure Time of Disposition: 21:18 Disposition: Home, Self-Care 01 Condition: Fair Clinical Impression: Nonspecific chest pain, Anxiety Prescriptions: LORazepam [Ativan] 1 mg PO TID PRN #20 tab PRN Reason: Anxiety Instructions: Nonspecific Chest Pain, Adult, [id number] Forms: ED Department Discharge Additional Instructions: You were evaluated in the ER today regarding your ongoing chest pain. Your EKG was within normal limits, and laboratory evaluation was also within normal limits. There were no emergent considerations that were uncovered by today's evaluation. Unfortunately there is still not a great answer as to what is causing your chest pain, but it could likely be due to a musculoskeletal etiology in nature. Recommend you take 600 mg ibuprofen or 500 mg Tylenol every 6 hours as needed for further pain relief. Do not exceed 3200 mg ibuprofen or 4000 mg Tylenol in a 24-hour time span. You were identified to have some anxiety as well, and were given 1 mg Ativan in the ER for anxiety management, this did seem to provide you pretty good relief. You have been given a few tablets of this to take on outpatient basis, please take 1 tab 3 times a day as needed for further anxiety symptoms. Recommend you set up care with a primary care provider, recommend Shawanda Haider NP, please call [phone] to obtain an appointment with her tomorrow, for sometime within the next week to 10 days for ER follow-up. Please return to the ER at any time if symptoms change or worsen. Sepsis Event Note - Evaluation Sepsis Screening Result: No Definite Risk - Focused Exam Vital Signs: Vital Signs Temp Pulse Resp BP Pulse Ox 09/30/19 19:08 98.0 F 94 18 119/70 100 Date Exam was Performed: 09/30/19 Time Exam was Performed: 21:18 - My Orders Last 24 Hours: My Active Orders 09/30/19 19:20 Sodium Chloride 0.9% [Saline Flush] 10 ml FLUSH ASDIRECTED PRN Peripheral IV Insertion Adult [OM.PC] Stat 09/30/19 19:21 EKG Documentation Completion [RC] STAT 09/30/19 19:25 Peripheral IV Care [RC] . DIRECTED - Assessment/Plan Last 24 Hours: My Active Orders 09/30/19 19:20 Sodium Chloride 0.9% [Saline Flush] 10 ml FLUSH ASDIRECTED PRN Peripheral IV Insertion Adult [OM.PC] Stat 09/30/19 19:21 EKG Documentation Completion [RC] STAT 09/30/19 19:25 Peripheral IV Care [RC] . DIRECTED
--- NOTE | 2019-09-30 20:30 | CR ---
Chest: PA and lateral views of the chest were obtained. Comparison: Prior chest x-ray of 06/17/19. Heart size and mediastinum are within normal limits. Lungs are clear with no acute parenchymal change. Bony structures appear within normal limits for the patient's age. Impression: 1. Nothing acute is appreciated on 2 view chest x-ray. Diagnostic code #1 This report was dictated in MDT
== END 2019-09-30 21:39 | disposition home or self-care (01) ==
LOC: JD.ED 19:00
DX: F41.9 Anxiety disorder, unspecified (principal); R07.9 Chest pain, unspecified; Z79.899 Other long term (current) drug therapy
CPT/HCPCS: 36415; 71046; 80053; 83735; 84484; 85007; 85027; 85610; 85730; 93005; 99285; A9270; 93010; 99284

== ENCOUNTER → 2019-11-25 | Day surgery (SDC) | payer MEDICAID ==
[~2019-11-25] MED LIST changes: +Lactated Ringers 1,000 ML IV SCH; +Lactated Ringers 1,000 ML ONE; +Lidocaine 1% 4 ML ONE; +Lidocaine 1%/Sod Bicarbonate in NS 8.4% 1 ML Syringe IDERM PRN; +Midazolam 1 MG/ML 2 ML SDV ONE; -Oxytocin/Lactated Ringers 10 UNIT/1,000 ML BAG IV SCH; +Propofol 200 MG/20 ML SDV ONE; +Sodium Chloride 0.9% 10 ML Syringe FLUSH PRN
--- NOTE | 2019-11-25 07:30 | PCM.PREANE ---
Preanesthetic Assessment - Procedure Proposed Procedure: EGD - Anesthesia/Transfusion/Family Hx Anesthesia History: Prior Anesthesia Without Reaction Family History of Anesthesia Reaction: No Transfusion History: No Prior Transfusion(s) - Review of Systems General: No Symptoms Pulmonary: No Symptoms Cardiovascular: No Symptoms Gastrointestinal: No Symptoms Neurological: Numbness ("more on left side"), Tingling ("through out my body at times") Other: Reports: None - Physical Assessment NPO Status Date: 11/24/19 NPO Status Time: 00:00 Height: 1.63 m Weight: 58.06 kg ASA Class: 2 Mental Status: Alert & Oriented x3 Thyro-Mental Finger Breadths: 3 Mouth Opening Finger Breadths: 3 ROM/Head Extension: Full Lungs: Clear to Auscultation, Normal Respiratory Effort Cardiovascular: Regular Rate, Regular Rhythm - Allergies Allergies/Adverse Reactions: Allergies Allergy/AdvReac Type Severity Reaction Status Date / Time No Known Allergies Allergy Verified 11/24/19 15:42 - Blood Blood Available: No Product(s) Available: None - Anesthesia Plan Pre-Op Medication Ordered: None - Acknowledgements Anesthesia Type Planned: MAC Pt an Appropriate Candidate for the Planned Anesthesia: Yes Alternatives and Risks of Anesthesia Discussed w Pt/Guardian: Yes Pt/Guardian Understands and Agrees with Anesthesia Plan: Yes PreAnesthesia Questionnaire - Past Health History Medical/Surgical History: Denies Medical/Surgical History HEENT History: Reports: Other (See Below) Other HEENT History: sore throat, tonsillectomy Cardiovascular History: Reports: Other (See Below) Other Cardiovascular History: chest pain Respiratory History: Reports: SOB Gastrointestinal History: Reports: None 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: , 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 , 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 (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 Below) 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 Musculoskeletal History: Reports: None Neurological History: Reports: None Psychiatric History: Reports: None Endocrine/Metabolic History: Reports: None Hematologic History: Reports: None Immunologic History: Reports: None Oncologic (Cancer) History: Reports: None Dermatologic History: Reports: None - Infectious Disease History Infectious Disease History: Reports: Chicken Pox - Past Surgical History Head Surgeries/Procedures: Reports: None HEENT Surgical History: Reports: Tonsillectomy Cardiovascular Surgical History: Reports: None Respiratory Surgical History: Reports: None GI Surgical History: Reports: None Female Surgical History: Reports: Cervical Conization, LEEP, Tubal Ligation Male Surgical History: Reports: None Endocrine Surgical History: Reports: None Neurological Surgical History: Reports: None Musculoskeletal Surgical History: Reports: None Oncologic Surgical History: Reports: None Dermatological Surgical History: Reports: None - SUBSTANCE USE Smoking Status *Q: Never Smoker Recreational Drug Use History: No - HOME MEDS Home Medications: Home Meds Albuterol [Proair HFA] 1 - 2 puff INH Q6H PRN 11/24/19 [History] LORazepam [Ativan] 1 mg PO DAILY PRN 11/24/19 [History] Pantoprazole Sodium [Protonix] 40 mg PO DAILY 11/24/19 [History] Sucralfate [Carafate] 1 gm PO QID 11/24/19 [History] - CURRENT (IN HOUSE) MEDS Current Meds: Current Medications Lactated Ringer's (Ringers, Lactated) 1,000 mls @ 125 mls/hr IV ASDIRECTED JULIOCESAR Stop: 11/25/19 23:00 Lidocaine/Sodium Bicarbonate (Buffered Lidocaine 1% In Ns 8.4%) 0.25 ml IDERM ONETIME PRN PRN Reason: Prior to IV Start Stop: 11/25/19 23:00 Sodium Chloride (Saline Flush) 10 ml FLUSH ASDIRECTED PRN PRN Reason: Keep Vein Open Stop: 11/25/19 23:00
--- NOTE | 2019-11-25 08:28 | PCM.PRNOTE ---
- Free Text/Narrative Note: Date: 11/25/2019 Procedure: diagnostic esophagogastroduodenoscopy Endoscopist: Regan Abrams MD Findings: small gastric polyp. Small hiatal hernia. Grade A reflux esophagitis. Distal esophageal spastic contractions. Detailed Report: The patient was taken to the endoscopy suite and placed in left lateral decubitus position. Time out was performed and monitored anesthesia care initiated. A bite block was placed, and the endoscope was inserted orally. The scope was easily advanced to the second portion of the duodenum. The duodenal mucosa appeared grossly normal. A sample biopsy with cold forceps was obtained. The stomach also appeared grossly normal without evidence of inflammation or ulceration. A biopsy of the antrum was obtained. A small polyp in the body was biopsied. On retroflexion, a small ~3 cm hiatal hernia was noted. The Z line appeared normal. There was mild linear erythematous streaking on mucosal ridges of the distal esophagus. A biopsy was obtained. There was some linear hyperemic change in the mid esophagus as well which was biopsied. On monitoring of the GE junction from within the esophagus, there were repeated distal peristaltic contractions without noted relaxation of the CRISTA. Air was suctioned from the upper GI tract and the scope was withdrawn completely. The patient tolerated the procedure well. Regan Abrams MD General Surgery
--- NOTE | 2019-11-25 08:38 | PCM48HPAN ---
Post Anesthesia Note - EVALUATION WITHIN 48HRS OF ANESTHETIC Vital Signs in Normal Range: Yes Patient Participated in Evaluation: Yes Respiratory Function Stable: Yes Airway Patent: Yes Cardiovascular Function Stable: Yes Hydration Status Stable: Yes Pain Control Satisfactory: Yes Nausea and Vomiting Control Satisfactory: Yes Mental Status Recovered: Yes Vital Signs: Last Vital Signs Temp 36.2 C 11/25/19 07:45 Pulse 96 11/25/19 07:45 Resp 16 11/25/19 07:45 BP 103/74 11/25/19 07:45 Pulse Ox 98 11/25/19 07:45 - COMMENTS/OBSERVATIONS Free Text/Narrative:: no anesthesia complications noted
[2019-11-25 09:51] VITALS: BP 106/76; PULSE 88
== END | disposition home or self-care (01) ==
LOC: JD.SDS 06:58
PROVIDERS: ATTEND Surgery
DX: K31.7 Polyp of stomach and duodenum (principal); K29.50 Unspecified chronic gastritis without bleeding; K21.0 Gastro-esophageal reflux disease with esophagitis; K22.4 Dyskinesia of esophagus; F41.9 Anxiety disorder, unspecified; K44.9 Diaphragmatic hernia without obstruction or gangrene; Z79.899 Other long term (current) drug therapy
CPT/HCPCS: 43239; J2001; J2250; J2704; J7120; 00731